=== PATIENT | male | born 1985 | race Two or more races ===

== ENCOUNTER 2020-04-16 05:52 | Inpatient (IN) | payer OTHER ==
[~2020-04-16] VITALS: Ht 177.8 cm; Wt 96.8 kg
[2020-04-16 07:35] LABS: Urine Bacteria NONE SEEN /hpf (None Seen); Urine Blood Negative /uL (Negative); Urine Mucus FEW (None Seen); Urine Specific Gravity 1.025 (1.001-1.035); Urine WBC <1 /hpf (0 - 3)
[2020-04-16] MEDS ORDERED: SODIUM CHLORIDE 0.9% 1,000 ML IV ONE ×2 (08:15→09:15)
[2020-04-16] MEDS ORDERED: METOCLOPRAMIDE HCL 5MG/ml INJ 2ml VIAL IV ONE (08:15)
[2020-04-16] MEDS ORDERED: KETOROLAC TROMETH 60MG/2ML VIAL IM ONE (08:15)
[2020-04-16] MEDS ORDERED: FAMOTIDINE (10MG/ML) 2ML VL IV ONE (08:15)
[2020-04-16 08:30] LABS: Basophils # (auto) 0 10 ^3/uL (0-0.2); Basophils % (auto) 0.1 % (0.0-2.0); Eosinophils # (auto) 0 10 ^3/uL (0-0.8); Hemoglobin 16.7 g/dL (13.5-17.5); Lymphocytes % (auto) 5.9 % (10.0-50.0); Mean Corpuscular Hemoglobin 29.4 pg (28.0-32.0); Mean Corpuscular Hgb Conc. 35.5 g/dL (32.0-36.0); Mean Corpuscular Volume 82.7 fL (80.0-100.0); Monocytes # (auto) 0.9 10 ^3/uL (0-1.3); Monocytes % (auto) 5.3 % (0.0-12.0); Neutrophils # (auto) 14.9 10 ^3/uL (1.6-8.6); Neutrophils % (auto) 88.7 % (37.0-80.0); Nucleated Red Blood Cells % 0.1 %; Platelet Count (auto) 318 10^3/uL (140-450); Red Blood Cells 5.68 10^6/uL (4.5-5.90); Red Cell Distribution Width 15.2 % (11.8-14.3); White Blood Cell 16.8 10^3/uL (4.4-10.8)
[2020-04-16] MEDS ORDERED: KETOROLAC TROMETH 30 MG/ML 1ML VIAL IV ONE (08:30)
[2020-04-16 08:50] LABS: Albumin 4.6 g/dL (3.4-5.0); Calcium 9.1 mg/dL (8.5-10.1); Magnesium 1.7 mg/dL (1.6-2.6)
[2020-04-16 08:59] LABS: BUN/Creatinine Ratio 15.8; Total Protein 8.9 g/dL (6.4-8.2)
[2020-04-16] MEDS ORDERED: cefTRIAXone 1GM/50ML D5W 50 ML IV ONE (09:15)
[2020-04-16] MEDS ORDERED: MORPHINE SULFATE 4 MG/ML SYR/VIAL IV ONE (09:15)
[2020-04-16] MEDS ORDERED: IOHEXOL 300 MG/ML 100ML BOTTLE IJ ONE (10:27)
[2020-04-16 10:30] LABS: Alcohol, Urine < 3.0 mg/dL (0-10); Amphetamine Screen, Urine NEGATIVE (NEGATIVE); Barbiturate Scree,Urine NEGATIVE (NEGATIVE); Benzodiazephine Screen, Urine NEGATIVE (NEGATIVE); Cannabinoid Screen, Urine NEGATIVE (NEGATIVE); Cocaine Screen, Urine NEGATIVE (NEGATIVE); Opiate Scree,Urine NEGATIVE (NEGATIVE); Phencyclidine Screen, Urine NEGATIVE (NEGATIVE)
[2020-04-16] MEDS ORDERED: ONDANSETRON HCL 4 MG/2 ML VIAL IV PRN (10:45)
[2020-04-16] MEDS ORDERED: HYDROcodone-ACET 5/325MG TAB PO PRN (10:45)
[2020-04-16] MEDS ORDERED: DOCUSATE SOD 100 MG CAP PO PRN (10:45)
[2020-04-16] MEDS ORDERED: ACETAMINOPHEN 325 MG TAB PO PRN (10:45)
[2020-04-16] MEDS ORDERED: NITROGLYCERIN 0.4 MG SL TAB SL PRN (10:45)
[2020-04-16] MEDS ORDERED: MORPHINE SULF INJ 2 MG/ML SYRINGE 1ML IV PRN (10:45)
[2020-04-16] MEDS ORDERED: ALUM & MAG HYDROX-SIMETH LIQ(MAALOX) 30 ML PO PRN (10:45)
[2020-04-16] MEDS ORDERED: LORazepam 0.5 MG TAB PO PRN (10:45)
[2020-04-16] MEDS: SODIUM CHLORIDE 0.9% 1,000 ML IV SCH (12:30)
[2020-04-16] MEDS ORDERED: hydrALAZINE HCL 20 MG/ML VL IV PRN (13:00)
[2020-04-16] MEDS ORDERED: hydrALAZINE HCL 20 MG/ML VL IV ONE (13:15)
[2020-04-16] MEDS ORDERED: cloNIDine HCL 0.1 MG TAB PO PRN (13:30)
[2020-04-16] MEDS ORDERED: THIAMINE 100mg/ml INJ (200mg/2ml VIAL) IV ONE (13:30)
[2020-04-16] MEDS ORDERED: NIFEdipine ER 30 MG TAB PO ONE (13:30)
[2020-04-16] MEDS ORDERED: THIAMINE HCL 100 MG TAB PO ONE (13:30)
[2020-04-16] MEDS ORDERED: FOLIC ACID 1 MG TAB PO ONE (13:30)
[2020-04-16] MEDS ORDERED: LORazepam 2MG/ML-1ML VIAL IV PRN (13:30)
[2020-04-16] MEDS ORDERED: MULTIPLE VITAMIN TAB PO ONE (13:30)
[2020-04-16 13:33] LABS: Cholesterol 263 mg/dL (< 200); HDL Cholesterol 9 mg/dL (40-59); Triglycerides 970 mg/dL (< 150)
[2020-04-16] MEDS: MORPHINE SULF INJ 2 MG/ML SYRINGE 1ML IV PRN ×3 (13:33→21:45)
--- NOTE | 2020-04-16 13:45 | NUR ---
Telemetry admit from ER DEE GUILLEN admitted to Telemetry unit after SBAR received. Patient oriented to RITCHIE MICHAEL, RN primary RN, unit, room, bed, and unit policies regarding patient care and visiting hours. Patient now on continuous telemetry monitoring, tele box # 81. Patient weighed by bedscale and encouraged to call if they need something. All questions and concerns addressed, patient verbalized understanding. VS: 99.4, 72, 18, 97%, 162/104. Patient just received pain medication in ER prior to transfer to room. Will reassess pain. Note:
[2020-04-16] MEDS: metroNIDAZOLE 500MG/100ML 100 ML IV SCH ×2 (14:08→21:45)
[2020-04-16] MEDS ORDERED: MULT-1058 PO (14:20)
[2020-04-16] MEDS ORDERED: CYCL10TA6 PO (14:20)
[2020-04-16] MEDS ORDERED: METO25TA5 PO (14:20)
[2020-04-16] MEDS ORDERED: TRAZ-181 PO (14:20)
[2020-04-16] MEDS ORDERED: FOLI1TAB6 PO (14:20)
--- NOTE | 2020-04-16 14:25 | NUR ---
Blood pressure BP 162/104. Patient given bp meds. Will reassess.
--- NOTE | 2020-04-16 15:25 | NUR ---
BP reassessment Reassessed bp, 148/90. Will continue to monitor
[2020-04-16 16:43] VITALS: BP 160/89
--- NOTE | 2020-04-16 17:40 | NUR ---
Covid swab walked to lab
--- NOTE | 2020-04-16 19:30 | NUR ---
Opening Shift Note Assumed care of patient, awake and alert. No S/S of distress/SOB. Pain reported manageable at 5/10. Pain management options discussed with patient. Instructed on POC and to call for assist PRN, will continue to monitor for changes Q1hr and PRN.
[2020-04-16 20:00] VITALS: BP 145/77
--- NOTE | 2020-04-16 20:15 | NUR ---
Covid sample obtained and walked to Lab
[2020-04-16 21:57] VITALS: BP 145/77
[2020-04-17] VITALS (7 sets, daily range): BP systolic 129–153; BP diastolic 70–92
[2020-04-17] MEDS: MORPHINE SULF INJ 2 MG/ML SYRINGE 1ML IV PRN ×7 (01:49→23:31)
[2020-04-17] MEDS: SODIUM CHLORIDE 0.9% 1,000 ML IV SCH ×3 (03:15→22:00)
[2020-04-17] MEDS: metroNIDAZOLE 500MG/100ML 100 ML IV SCH ×3 (05:55→21:59)
[2020-04-17] MEDS: cefTRIAXone 1GM/50ML D5W 50 ML IV SCH (09:01)
[2020-04-17] MEDS: NIFEdipine ER 30 MG TAB PO SCH (09:53)
[2020-04-17] MEDS: THIAMINE HCL 100 MG TAB PO SCH (09:54)
[2020-04-17] MEDS: FOLIC ACID 1 MG TAB PO SCH (09:54)
[2020-04-17] MEDS: MULTIPLE VITAMIN TAB PO SCH (09:54)
--- NOTE | 2020-04-17 11:35 | NUR ---
Dr Lazo bedside with patient discussing plan of care. Orders received and carried out.
[2020-04-17] MEDS ORDERED: chlordiazePOXIDE HCL 25 MG CAP PO PRN (11:45)
--- NOTE | 2020-04-17 12:12 | NUR ---
Surgical Consult Patient info provided to Dr Lutz. Dr Lutz will be in to see patient tomorrow.
[2020-04-17] MEDS: FOLIC ACID 1 MG, MULTIPLE VITAMIN 10 ML, MAGNESIUM SULF SDV 50% 8 MEQ, THIAMINE INJ 100... INJ SCH ×5 (12:45)
[2020-04-17 14:27] LABS: Urine Bacteria NONE SEEN /hpf (None Seen); Urine Blood TRACE /uL (Negative); Urine Mucus FEW (None Seen); Urine Specific Gravity 1.022 (1.001-1.035); Urine WBC 2 /hpf (0 - 3)
[2020-04-17 14:43] LABS: Alcohol, Urine < 3.0 mg/dL (0-10); Amphetamine Screen, Urine NEGATIVE (NEGATIVE); Barbiturate Scree,Urine NEGATIVE (NEGATIVE); Benzodiazephine Screen, Urine NEGATIVE (NEGATIVE); Cannabinoid Screen, Urine NEGATIVE (NEGATIVE); Cocaine Screen, Urine NEGATIVE (NEGATIVE); Opiate Scree,Urine POSITIVE (NEGATIVE); Phencyclidine Screen, Urine NEGATIVE (NEGATIVE)
--- NOTE | 2020-04-17 19:30 | NUR ---
Opening Shift Note Assumed care of patient, awake and alert. No S/S of distress/SOB. Pain management options discussed with patient. Instructed on POC and to call for assist PRN, will continue to monitor for changes Q1hr and PRN.
[2020-04-18] MEDS: MORPHINE SULF INJ 2 MG/ML SYRINGE 1ML IV PRN ×3 (04:44→12:02)
[2020-04-18 04:59] VITALS: BP 146/76
[2020-04-18] MEDS: metroNIDAZOLE 500MG/100ML 100 ML IV SCH ×2 (05:36→13:48)
[2020-04-18 06:01] LABS: Basophils # (auto) 0 10 ^3/uL (0-0.2); Basophils % (auto) 0.1 % (0.0-2.0); Eosinophils # (auto) 0.3 10 ^3/uL (0-0.8); Eosinophils % (auto) 2.4 % (0.0-7.0); Hematocrit 42.1 % (41.0-53.0); Hemoglobin 14.3 g/dL (13.5-17.5); Lymphocytes # (auto) 1.4 10 ^3/uL (0.4-5.4); Mean Corpuscular Hemoglobin 28.4 pg (28.0-32.0); Mean Corpuscular Hgb Conc. 33.9 g/dL (32.0-36.0); Mean Corpuscular Volume 83.8 fL (80.0-100.0); Monocytes # (auto) 0.9 10 ^3/uL (0-1.3); Monocytes % (auto) 6.6 % (0.0-12.0); Neutrophils # (auto) 11.1 10 ^3/uL (1.6-8.6); Neutrophils % (auto) 80.9 % (37.0-80.0); Nucleated Red Blood Cells % 0.1 %; Platelet Count (auto) 208 10^3/uL (140-450); Red Blood Cells 5.02 10^6/uL (4.5-5.90); White Blood Cell 13.8 10^3/uL (4.4-10.8)
[2020-04-18 06:15] LABS: INR 1.06 (0.9-1.15)
[2020-04-18 06:17] LABS: Potassium 3.1 mmol/L (3.5-5.1)
[2020-04-18 06:27] LABS: Albumin 3.4 g/dL (3.4-5.0); BUN/Creatinine Ratio 16.9; Bilirubin, Total 1.7 mg/dL (0.2-1.0); Calcium 8.2 mg/dL (8.5-10.1); Total Protein 7.8 g/dL (6.4-8.2)
[2020-04-18] MEDS: SODIUM CHLORIDE 0.9% 1,000 ML IV SCH (07:52)
[2020-04-18 08:00] VITALS: BP 118/72
[2020-04-18 09:00] VITALS: BP 118/72
[2020-04-18] MEDS: MULTIPLE VITAMIN TAB PO SCH (09:30)
[2020-04-18] MEDS: THIAMINE HCL 100 MG TAB PO SCH (09:30)
[2020-04-18] MEDS: cefTRIAXone 1GM/50ML D5W 50 ML IV SCH (09:30)
[2020-04-18] MEDS: FOLIC ACID 1 MG TAB PO SCH (09:30)
[2020-04-18] MEDS: NIFEdipine ER 30 MG TAB PO SCH (09:31)
--- NOTE | 2020-04-18 12:13 | NUR ---
Dr Lazo bedside with patient discussing plan of care.
[2020-04-18] MEDS ORDERED: POTASSIUM EFFERVESENT TAB 25 MEQ PO ONE (12:45)
[2020-04-18] MEDS: FOLIC ACID 1 MG, MULTIPLE VITAMIN 10 ML, MAGNESIUM SULF SDV 50% 8 MEQ, THIAMINE INJ 100... INJ SCH ×5 (13:08)
[2020-04-18 13:12] VITALS: BP 133/69
--- NOTE | 2020-04-18 16:25 | NUR ---
Discharge instructions given as ordered. Encouraged to follow up with PMD at the [facility] and Dr Lutz in 2-4 weeks. Contact information provided to call and schedule appointment. All questions and concerns addressed. Patient verbalized understanding. Medication reconciliation form completed and copy given to patient. No home medications held in Pharmacy, and no vaccines given, patient up to date. IV removed with catheter intact and pressure dressing applied. Telemetry unit returned to ICU. Patient taken to vehicle via wheelchair with all personal belongings, accompanied by staff member. No distress noted at time of departure.
[2020-04-18 17:00] VITALS: BP 135/77
== END 2020-04-18 16:25 | disposition home or self-care (01) | DRG 871 ==
LOC: ER 05:52 → TELE 05:53 → TELE-WESTW 14:11
PROVIDERS: ADMIT Hospitalist; ATTEND Internal Medicine
DX: A41.9 Sepsis, unspecified organism (principal); K85.20 Alcohol induced acute pancreatitis without necrosis or infection; E87.1 Hypo-osmolality and hyponatremia; F10.239 Alcohol dependence with withdrawal, unspecified; K80.20 Calculus of gallbladder without cholecystitis without obstruction; K70.10 Alcoholic hepatitis without ascites; E66.9 Obesity, unspecified; R80.9 Proteinuria, unspecified; R73.9 Hyperglycemia, unspecified; F17.200 Nicotine dependence, unspecified, uncomplicated; E78.5 Hyperlipidemia, unspecified; F41.9 Anxiety disorder, unspecified; E87.6 Hypokalemia; Z20.828 Contact with and (suspected) exposure to other viral communicable diseases; Z68.30 Body mass index [BMI] 30.0-30.9, adult
CPT/HCPCS: 36415; 71046; 74177; 76705; 80053; 80061; 80307; 80320; 81001; 82150; 83036; 83605; 83690; 83735; 84484; 85025; 85610; 87040; 87086; 87426; G0378; J0696; J1885; J3490

== ENCOUNTER 2021-01-03 09:57 | Emergency (ER) | payer OTHER ==
[~2021-01-03] VITALS: Ht 177.8 cm; Wt 93.0 kg
[~2021-01-03 09:57] MED LIST: CYCL10TA6 PO; FOLI1TAB6 PO; METO25TA5 PO; MULT-1058 PO; TRAZ-181 PO
[2021-01-03] MEDS ORDERED: HYDROcodone-ACET 5/325MG TAB PO ONE (11:15)
[2021-01-03] MEDS ORDERED: IOHEXOL 300 MG/ML 100ML BOTTLE IJ ONE (13:03)
[2021-01-03] MEDS ORDERED: MORPHINE SULF INJ 2 MG/ML SYRINGE 1ML IV ONE ×2 (13:15→14:45)
[2021-01-03] MEDS ORDERED: HYDROmorphone HCL 2 MG/ML VL IV ONE (16:45)
[2021-01-03] MEDS ORDERED: cloNIDine HCL 0.1 MG TAB PO ONE ×2 (16:45→17:30)
[2021-01-03] MEDS ORDERED: SODIUM CHLORIDE 0.9% 1,000 ML IV ONE (17:30)
[2021-01-03] MEDS ORDERED: ONDANSETRON HCL 4 MG/2 ML VIAL IV ONE (22:15)
[2021-01-03] MEDS ORDERED: MORPHINE SULFATE 4 MG/ML SYR/VIAL IV ONE (22:15)
[2021-01-03 22:24] VITALS: BP 153/93
== END 2021-01-03 22:42 | disposition short-term general hospital (02) ==
LOC: ER 09:57
DX: S22.22XA Fracture of body of sternum, initial encounter for closed fracture (principal); S16.1XXA Strain of muscle, fascia and tendon at neck level, initial encounter; Z79.899 Other long term (current) drug therapy; V43.52XA Car driver injured in collision with other type car in traffic accident, initial encounter; Y93.89 Activity, other specified; Y92.89 Other specified places as the place of occurrence of the external cause; Y99.8 Other external cause status
CPT/HCPCS: 71046; 71250; 72125; 72128; 74177; 93005; 96361; 96374; 96375; 96376; 99285; J1170; J2270; J2405; J7030; Q9967